=== PATIENT | female | born 1950 | race Caucasian/White ===

== ENCOUNTER 2022-06-05 08:18 | Outpatient (CLI) | payer MEDICARE, BC, SELFPAY ==
[2022-06-05 09:46] LABS: Chloride* 109 mmol/L (96-114); Potassium* 4.6 mmol/L (3.6-5.1); Sodium* 143 mmol/L (135-149)
[2022-06-05 09:49] LABS: Blood Urea Nitrogen* 17 mg/dL (7-30); Carbon Dioxide* 29 mmol/L (20-32); Cholesterol* 165 mg/dL (90-199); Creatinine* 0.9 mg/dL (0.5-1.5); Estimated Glomerular Filt Rate 68 ml/min; Glucose* 95 mg/dL (60-115); Triglycerides* 66 mg/dL (40-149)
[2022-06-05 09:50] LABS: Calcium* 9.1 mg/dL (8.4-10.6); HDL Cholesterol* 73 mg/dL (>=50); LDL Cholesterol Calculated 79 mg/dL (<100)
== END 2022-06-05 08:19 | disposition home or self-care (01) ==
LOC: NFLDREF 08:19
PROVIDERS: PCP Internal Medicine; Visit Provider Internal Medicine
DX: E78.5 Hyperlipidemia, unspecified (principal); I10 Essential (primary) hypertension
CPT/HCPCS: 80048; 80061

== ENCOUNTER 2022-06-20 13:36 | Outpatient (CLI) | payer MEDICARE, BC, SELFPAY ==
--- NOTE | 2022-06-20 14:00 | CRLHL7_ITS ---
For Patients: As a result of the Century Cures Act, medical imaging exams and procedure reports are released immediately into your electronic medical record. You may view this report before your referring provider. If you have questions, please contact your health care provider. BILATERAL SCREENING MAMMOGRAM WITH COMPUTER-AIDED DETECTION AND TOMOSYNTHESIS TECHNIQUE: CC and MLO views were obtained. These mammographic images have been obtained using full-field digital technique. These mammographic images were interpreted with the benefit of computer-aided detection. Breast Tomosynthesis was used in this interpretation. COMPARISON FILM: 05/02/21, 12/17/19, 09/23/18. FINDINGS: The breasts are heterogeneously dense, which may obscure small masses IMPRESSION: There is no radiographic evidence for malignancy. ASSESSMENT: BI-RADS Category 1: Negative RECOMMENDATION: Routine screening mammogram in 1 year. A lay language report of this examination will be provided to the patient. Ryan Kim M.D. Diagnostic Radiologist [email or web address] BENJAMIN/travis be/Dictated by: Ryan Kim MD @ 06/21/2022 9:33:00 AM (Electronically Signed)
== END 2022-06-20 13:37 | disposition home or self-care (01) ==
LOC: MAMMO 13:38
PROVIDERS: PCP Internal Medicine; Visit Provider Internal Medicine
DX: Z12.31 Encounter for screening mammogram for malignant neoplasm of breast (principal); R92.2 Inconclusive mammogram
CPT/HCPCS: 77063; 77067

== ENCOUNTER 2023-09-05 08:09 | Outpatient (CLI) | payer MEDICARE, BC, SELFPAY | END 2023-09-05 08:10 | disposition home or self-care (01) | PROVIDERS: PCP Internal Medicine; Visit Provider Internal Medicine | DX: R06.00 Dyspnea, unspecified (principal); E78.5 Hyperlipidemia, unspecified | CPT/HCPCS: 80053; 80061 ==

== ENCOUNTER 2023-09-10 13:40 | Outpatient (CLI) | payer MEDICARE, BC, SELFPAY ==
--- NOTE | 2023-09-10 14:31 | W.PM.STED ---
Stress Test Note Date Date Seen: 09/10/23 Date of test: 09/10/23 Providers Primary care provider: Sherri Martinez Stress test physician: Abbey Mack Stress Test Note Stress test ordered: Stress Echo Indication for test: Dyspnea Stress test medicine: None Results discussion: Resting EKG: Sinus rhythm, 84 beats per minute. Some artifact. Resting blood pressure: 183/97, note patient has been out of her losartan for 2 days. Stress test: Patient was exercised on the treadmill following standard Jose protocol. She was able to exercise 6 minute 2nd, achieving 7.1 Mets. She requested to stop and not go up to the next level due to shortness of breath. She had no chest pain. She had a maximum heart rate of 144 beats per minute which was 116% of a calculated target heart rate of 124. She had a maximal blood pressure during exercise of 194/108 given her rate pressure product of 27,936. No ischemic change, no arrhythmia. Did note an occasional premature supraventricular beat in recovery. Patient recovered nicely, outside of shortness of breath or dyspnea during the exercise, had no symptoms. Await echo images to couple this for a full formal diagnostic report. Note patient had a hypertensive response to exercise but was off her losartan for 2 days prior, this would not be unexpected given the withholding of her antihypertensive. Impression: Subjective dyspnea with exercise, no chest pain, objectively negative EKG. Follow up suggested: Patient was discharged home in stable condition, recovered. Will await echo images to couple this for a full formal diagnostic. She is advised to get back on her losartan.
[2023-09-10 14:32] VITALS: BP 178/90; PULSE 90; RESP 16
== END 2023-09-10 13:41 | disposition home or self-care (01) ==
PROVIDERS: PCP Internal Medicine; Visit Provider Family Medicine
DX: R06.00 Dyspnea, unspecified (principal); I34.0 Nonrheumatic mitral (valve) insufficiency
CPT/HCPCS: 93016; 93325; 93351

== ENCOUNTER 2023-09-11 10:00 | Outpatient (CLI) | payer MEDICARE, BC, SELFPAY ==
--- NOTE | 2023-09-11 10:15 | MM_ITS ---
Patient: HOLGER SANDOVAL Facility:?[facility] Patient ID:?[id number] Site Patient ID:?[id number]. Site :?[id number] Study:?XRay-Breast Bilateral 3D W/CAD-09/11/2023 10:25:39 AM Ordering Physician:Sherri Richardson Final Report: BILATERAL SCREENING MAMMOGRAM WITH COMPUTER-AIDED DETECTION AND TOMOSYNTHESIS TECHNIQUE: CC and MLO views were obtained. These mammographic images have been obtained using full-field digital technique. These mammographic images were interpreted with the benefit of computer-aided detection. Breast Tomosynthesis was used in this interpretation. COMPARISON FILM: 06/20/22, 05/02/21, 12/17/19. FINDINGS: The breasts are heterogeneously dense, which may obscure small masses. IMPRESSION: There is no radiographic evidence for malignancy. ASSESSMENT: BI-RADS Category 2: Benign RECOMMENDATION: Routine screening mammogram in 1 year. A lay language report of this examination will be provided to the patient. Ryan Kim M.D. Diagnostic Radiologist [email or web address] DSM/sp R& Transcribed: 2:31 p.m. SP/Dictated by: Ryan Kim MD @ 09/11/2023 11:11:00 AM Signed by:?Ryan Kim MD @09/11/2023 2:35:26 PM (Electronic Signature)
== END 2023-09-11 10:01 | disposition home or self-care (01) ==
LOC: MAMMO 10:01
PROVIDERS: PCP Internal Medicine; Visit Provider Internal Medicine
DX: Z12.31 Encounter for screening mammogram for malignant neoplasm of breast (principal); R92.2 Inconclusive mammogram
CPT/HCPCS: 77063; 77067

== ENCOUNTER 2023-11-11 07:01 | Outpatient (CLI) | payer MEDICARE, BC, SELFPAY ==
--- NOTE | 2023-11-11 07:15 | MR_ITS ---
[facility] [address] [facility] [address] Phone:?[phone] Fax:?[phone] Referring Physician Information: Santiago Martell M.D. [address] [facility] [address] Phone:?[phone] Fax:?[phone] Patient:Dary Miller D.O.B:?1950 Sex:?Female Phone:?[phone] [facility] MRN:?[id number] Exam Date:?11/11/2023 EXAM: MRI of the LEFT KNEE, without contrast CLINICAL HISTORY: Left knee pain. Evaluate for medial meniscal tear. COMPARISONS: Plain radiographs 10/24/2023. TECHNICAL: MR sequences of the left knee: sagittals: PD, PDFS coronals: PD, STIR axials: PD, T2 FS CONTRAST: None SEDATION: None FINDINGS: Bones: There is a 1.0 x 0.7 cm subchondral trabecular microfracture of the peripheral portion of the medial tibial plateau with adjacent bone marrow edema. 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 Retinacula: The medial and lateral retinacula are intact. Fat pads: The infrapatellar, quadriceps, and prefemoral fat pads are unremarkable. Knee joint: Effusion: Large left knee joint effusion. Popliteal cyst: Small perforated popliteal cyst. Intra-articular bodies: None. Posteromedial corner: The semimembranosus and pes anserine tendons are intact. Medial compartment: Medial meniscus: There is a 2.0 cm in length complex tear from the body through posterior root of the medial meniscus with ill-defined full-thickness radial component through the posterior horn/posterior root junction. There is marked medial meniscal extrusion. Cartilage: There is extensive grade III and IV chondromalacia over most of the weightbearing portion of the medial femoral condyle and over most of the medial tibial plateau. Lateral compartment: Lateral meniscus: There is free edge fraying of the body of the lateral meniscus. Cartilage: There is a 4 x 4 mm focus of near full-thickness chondral loss over the weight-bearing portion of the lateral femoral condyle and a 1.0 x 1.0 cm area of grade II to III chondromalacia over the central portion of the lateral tibial plateau. Ligaments: Anterior cruciate ligament: Intact. Posterior cruciate ligament: Intact. Medial collateral ligament: Intact. Posterior oblique ligament: Intact. Fibular collateral ligament: Intact. Posterolateral corner: The distal biceps femoris tendon, iliotibial band, popliteus tendon, popliteus muscle, popliteofibular ligament, and arcuate ligament are intact. Extensor mechanism: Patellar tendon: Intact. Quadriceps tendon: Intact. IMPRESSION: 1. 2.0 cm in length complex tear from the body through posterior root of the medial meniscus with ill-defined full-thickness radial component through the posterior horn/posterior root junction. Marked medial meniscal extrusion. 2. 1.0 x 0.7 cm subchondral trabecular microfracture of the peripheral portion of the medial tibial plateau with adjacent bone marrow edema. 3. 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 4. Diffuse grade III and IV chondromalacia over the lateral patellar facet and lateral femoral trochlea with minimal associated subchondral cystic changes and extensive grade II chondromalacia over the medial patellar facet. 5. 4 x 4 mm focus of near full-thickness chondral loss over the weight-bearing portion of the lateral femoral condyle and a 1.0 x 1.0 cm area of grade II to III chondromalacia over the central portion of the lateral tibial plateau. 6. Large left knee joint effusion. Small perforated popliteal cyst. 7. No ligamentous or tendinous injury of the left knee. RCB Electronically signed on 11/11/2023 12:23:00 PM by Adan Jensen M.D.
== END 2023-11-11 07:02 | disposition home or self-care (01) ==
LOC: MRI 07:02
PROVIDERS: PCP Internal Medicine; Visit Provider Orthopaedic Surgery
DX: M25.562 Pain in left knee (principal); S83.232A Complex tear of medial meniscus, current injury, left knee, initial encounter; M94.262 Chondromalacia, left knee; M22.42 Chondromalacia patellae, left knee; M25.462 Effusion, left knee; M71.22 Synovial cyst of popliteal space [Baker], left knee
CPT/HCPCS: 73721

== ENCOUNTER 2024-10-06 09:29 | Outpatient (CLI) | payer MEDICARE, BC, SELFPAY | END 2024-10-06 09:30 | disposition home or self-care (01) | PROVIDERS: PCP Internal Medicine; Visit Provider Internal Medicine | DX: E78.5 Hyperlipidemia, unspecified (principal); I10 Essential (primary) hypertension | CPT/HCPCS: 80048; 80061 ==

== ENCOUNTER 2024-10-27 09:30 | Outpatient (CLI) | payer MEDICARE, BC, SELFPAY ==
--- NOTE | 2024-10-27 09:45 | CRLHL7_ITS ---
For Patients: As a result of the Century Cures Act, medical imaging exams and procedure reports are released immediately into your electronic medical record. You may view this report before your referring provider. If you have questions, please contact your health care provider. INDICATION: BILATERAL SCREENING MAMMOGRAM, ASYMPTOMATIC 75F COMPARISON: 09/11/23, 06/20/22, 05/02/21 TECHNIQUE: CC and MLO views were obtained. These mammographic images have been obtained using full-field digital technique. These mammographic images were interpreted with the benefit of computer aided detection and tomosynthesis. BREAST COMPOSITION: There are scattered areas of fibroglandular density. FINDINGS: No suspicious findings. ASSESSMENT: BI-RADS 2 Benign RECOMMENDATION: Annual screening mammogram. A lay language report of this examination will be provided to the patient. Dictated by: Ryan Kim MD @ 11/04/2024 10:58:53 (Electronically Signed)
== END 2024-10-27 09:31 | disposition home or self-care (01) ==
LOC: MAMMO 09:31
PROVIDERS: PCP Internal Medicine; Visit Provider Internal Medicine
DX: Z12.31 Encounter for screening mammogram for malignant neoplasm of breast (principal)
CPT/HCPCS: 77063; 77067

== ENCOUNTER 2025-05-18 09:06 | Outpatient (CLI) | payer MEDICARE, BC, SELFPAY | END 2025-05-18 09:07 | disposition home or self-care (01) | PROVIDERS: PCP Internal Medicine; Visit Provider Internal Medicine | DX: R53.81 Other malaise (principal); R53.83 Other fatigue; Z79.899 Other long term (current) drug therapy | CPT/HCPCS: 80053; 82306; 82550; 82607; 84443; 86038; 86140; 86200; 86431 ==